=== PATIENT | female | born 1945 | race Caucasian/White ===

== ENCOUNTER 2023-11-01 12:42 | Emergency (ER) | payer MEDICARE, OTHER, SELFPAY ==
[2023-11-01 12:45] VITALS: BP 154/53; PULSE 66; RESP 13; TEMP 36.6; O2SAT 96; BMI 37.6
[2023-11-01 12:55] VITALS: BMI 37.8
--- NOTE | 2023-11-01 13:11 | CT_ITS ---
STUDY: CT BRAIN WITHOUT CONTRAST REASON FOR EXAM: Female, 78 years old. Dizziness RADIATION DOSAGE (If Supplied By Facility): CTDIvol = ( 44.99 ) mGy, DLP = ( 779.24 ) mGycm TECHNIQUE: Transaxial CT imaging of the brain was performed without administration of intravenous contrast material. Individualized dose optimization techniques were used for this CT. COMPARISON: No relevant priors. FINDINGS: Normal soft tissue structures. Normal calvarium. There is mild cerebral atrophy with widening of the extra-axial spaces and ventricular dilatation. There are areas of decreased attenuation within the white matter tracts of the supratentorial brain, consistent with microvascular disease changes. Normal basal ganglia and thalami. Normal brainstem. Normal cerebellum. There is no intracranial hemorrhage. There are no findings of an acute ischemic infarction. Normal visualized paranasal sinuses. CT/Brain/Head without Contrast IMPRESSION: Chronic involutional changes of the brain. Electronically Signed: Mark Caballero MD at 15:42 EDT ,
--- NOTE | 2023-11-01 13:13 | NURSING ---
NO OLD EKGS
--- NOTE | 2023-11-01 13:13 | EX.ED.DYSGE1 ---
HPI <HANH Paredes - Last Filed: 11/01/23 16:17> History of Present Illness Chief Complaint: Neuro S/Sx Narrative Narrative: Patient is a 78-year-old female history of TIA, hypertension, A-fib on Eliquis, CAD who presents to the emergency department for sudden onset of dizziness, unsteadiness. Patient was recently admitted to the hospital for 4 days, at [facility], she is from [place] which is 1 hour away. Patient was released 5 days ago. She had a full neurological workup including CTAs, MRI of the brain. Patient was diagnosed with TIA. Patient states she had a similar feeling of unsteadiness, however she had no unilateral weakness, difficulty speaking. Patient is here for evaluation. Brought by EMS <Dr. Bhargav Meraz DO - Last Filed: 11/01/23 21:33> Narrative Narrative: Patient is a 78-year-old female history of TIA, hypertension, A-fib on Eliquis, CAD who presents to the emergency department for sudden onset of dizziness, unsteadiness. Patient was recently admitted to the hospital for 4 days, at [facility], she is from [place] which is 1 hour away. Patient was released 5 days ago. She had a full neurological workup including CTAs, MRI of the brain. Patient was diagnosed with TIA. Patient states she had a similar feeling of unsteadiness, however she had no unilateral weakness, difficulty speaking. Patient is here for evaluation. Brought by EMS ON LICENSE OF [facility] <HANH Paredes - Last Filed: 11/01/23 16:17> ON LICENSE OF [facility] Medical History (Updated 11/01/23 @ 16:16 by HANH Paredes) Afib CAD (coronary artery disease) HTN (hypertension) Home Medications ?Medication ?Instructions ?Recorded ?Last Taken ?Type meclizine 25 mg tablet 25 mg PO 4X/DAY PRN PRN Dizziness 11/01/23 Unknown Rx #20 tabs Allergy/AdvReac Type Severity Reaction Status Date / Time trazodone AdvReac Intermediate Hypertensio Verified 11/01/23 12:53 n fentanyl AdvReac Unknown Quit Verified 11/01/23 12:53 breathing oxycodone AdvReac Unknown Quit Verified 11/01/23 12:53 breathing Social History Smoking Status: Former smoker ROS <UMER ParedesC - Last Filed: 11/01/23 16:17> ROS ED ROS Narrative Constitutional: Negative for fever, chills, weight loss. Positive for feeling of weakness Eyes: Negative for vision loss, vision change, double vision ENT: Negative for any sore throat, ear pain, congestion Cardiovascular: Negative for any chest pain, tightness, palpitations Respiratory: Negative for any cough, sputum production, hemoptysis, dyspnea, dyspnea on exertion, orthopnea Gastrointestinal: Negative for any abdominal pain, nausea, vomiting, diarrhea, constipation, blood in stool, blood in vomit : Negative for any urinary frequency, dysuria, retention, blood in urine Muscle skeletal: Negative for any neck pain, back pain Neurological: Negative for any syncope. Positive feeling of dizziness, headache, unsteadiness Skin: Negative for any rashes, itching, abrasions, lacerations Psychiatric: Negative for any depression, anxiety, stress, suicidal ideation, homicidal ideation Hematologic: Negative for any excessive bruising, easy bleeding EXAM <HANH Paredes - Last Filed: 11/01/23 16:17> Physical Exam Narrative Exam Narrative: Vital signs reviewed. Patient is alert and orient x 4. Patient's no obvious distress. Patient states she feels better when she is sitting still laying down. HEET: Head normocephalic atraumatic, TMs clear bilaterally. Posterior pharynx is clear, moist mucous membranes. Nares clear bilaterally. Neck: Supple with no lymphadenopathy or tenderness. No signs of meningismus. Cardiac: Regular rate and rhythm no murmurs gallops or rubs, equal peripheral pulses bilaterally. Pacemaker Respiratory: Lungs clear to auscultation bilaterally. No chest tenderness. Abdomen: Soft, nontender, nondistended. No abdominal bruit or pulsatile masses. No hepatosplenomegaly Extremities: No peripheral edema, no signs of gross trauma or deformity. Active full range of motion of all extremities. Neuro: Cranial nerves II through XII intact, no focal neurological deficits. NIH stroke scale 0. I was able to get the patient up, patient states immediately when she stood up, she felt unsteady, she had a difficult time differentiating between dizziness which is room spinning, 2 faint nests feeling like she might pass out. Patient states she could not stand anymore and had to sit down. Was unable to do Romberg test. Patient did have some horizontal nystagmus during Eagle-Hallpike. Skin: Clean dry and intact with no rash, purpura, petechiae, vesicles or pustules. Backs/flank: No CVA tenderness, no midline spinal tenderness, no deformity. Psych: Normal mood and affect. No SI, HI or acute psychosis. Const Vital Signs: 11/01/23 12:45 11/01/23 13:45 11/01/23 14:00 Temperature 97.9 F Temperature Source Oral Pulse Rate 66 64 60 Respiratory Rate 13 16 18 Blood Pressure 154/53 H 134/55 H 135/77 H Blood Pressure [Lying] Blood Pressure [Sitting (for 1 minute prior to obtaining)] Blood Pressure [Standing (for 1 minute prior to obtaining)] Blood Pressure Mean 86 81 96 Blood Pressure Mean [Lying] Blood Pressure Mean [Sitting (for 1 minute prior to obtaining)] Blood Pressure Mean [Standing (for 1 minute prior to obtaining)] Pulse Ox 96 98 95 Oxygen Delivery Method Room Air Room Air Room Air 11/01/23 15:23 Temperature Temperature Source Pulse Rate Respiratory Rate Blood Pressure Blood Pressure [Lying] 131/55 H Blood Pressure [Sitting (for 1 minute prior to obtaining)] 133/60 H Blood Pressure [Standing (for 1 minute prior to obtaining)] 126/54 H Blood Pressure Mean Blood Pressure Mean [Lying] 80 Blood Pressure Mean [Sitting (for 1 minute prior to obtaining)] 84 Blood Pressure Mean [Standing (for 1 minute prior to obtaining)] 78 Pulse Ox Oxygen Delivery Method Positive well nourished and well developed General Appearance ED: well developed <Dr. Bhargav Meraz, DO - Last Filed: 11/01/23 21:33> Physical Exam Const Vital Signs: 11/01/23 12:45 11/01/23 13:45 11/01/23 14:00 Temperature 97.9 F Temperature Source Oral Pulse Rate 66 64 60 Respiratory Rate 13 16 18 Blood Pressure 154/53 H 134/55 H 135/77 H Blood Pressure [Lying] Blood Pressure [Sitting (for 1 minute prior to obtaining)] Blood Pressure [Standing (for 1 minute prior to obtaining)] Blood Pressure Mean 86 81 96 Blood Pressure Mean [Lying] Blood Pressure Mean [Sitting (for 1 minute prior to obtaining)] Blood Pressure Mean [Standing (for 1 minute prior to obtaining)] Pulse Ox 96 98 95 Oxygen Delivery Method Room Air Room Air Room Air 11/01/23 15:23 Temperature Temperature Source Pulse Rate Respiratory Rate Blood Pressure Blood Pressure [Lying] 131/55 H Blood Pressure [Sitting (for 1 minute prior to obtaining)] 133/60 H Blood Pressure [Standing (for 1 minute prior to obtaining)] 126/54 H Blood Pressure Mean Blood Pressure Mean [Lying] 80 Blood Pressure Mean [Sitting (for 1 minute prior to obtaining)] 84 Blood Pressure Mean [Standing (for 1 minute prior to obtaining)] 78 Pulse Ox Oxygen Delivery Method ALEENA <HANH Paredes - Last Filed: 11/01/23 16:17> [facility] Lab Data Labs: Laboratory Results - last 24 hr 11/01/23 11/01/23 13:00 14:05 WBC 6.1 RBC 4.33 Hgb 12.9 Hct 40.5 MCV 93.5 MCH 29.8 MCHC 31.9 L RDW Std Deviation 48.8 H RDW Coeff of Luke 14.2 Plt Count 259 MPV 10.1 Immature Gran % (Auto) 0.200 Neut % (Auto) 61.1 Lymph % (Auto) 30.1 [place] % (Auto) 4.4 Eos % (Auto) 3.5 Baso % (Auto) 0.7 Absolute Neuts (auto) 3.7 Absolute Lymphs (auto) 1.83 Nucleated RBC % 0 Sodium 139 Potassium 4.4 Chloride 106 Carbon Dioxide 28.0 Anion Gap 5 BUN 24 H Creatinine 1.50 H Estim Creat Clear Calc 29.91 Est GFR (MDRD) Af Amer 43 L Est GFR (MDRD) Non-Af 36 L BUN/Creatinine Ratio 16.0 Glucose 176 H Calcium 9.4 Urine Color Yellow Urine Clarity Sl. Cloudy Urine pH 6.5 Ur Specific [place] 1.010 Urine Protein 15 H Urine Glucose (UA) Normal Urine Ketones Negative Urine Occult Blood Negative Urine Nitrite Negative Urine Bilirubin Negative Urine Urobilinogen Normal Ur Leukocyte Esterase 25 H Urine RBC 0-5 SEEN Urine WBC 0-5 SEEN Ur Squamous Epith Cells 0-5 SEEN Urine Bacteria RARE Urine Mucus 0 SEEN Radiography Diagnostic Testing: Clinical Impression(s) from Imaging Studies Brain CT 11/01/23 13:11 IMPRESSION: Chronic involutional changes of the brain. Electronically Signed: Mark Caballero MD at 15:42 EDT , EKG Normal sinus rhythm: Attestation: I personally reviewed and interpreted this EKG as follows: Comments: Normal sinus rhythm, right bundle branch block, rate of 64 bpm, MS interval 144 ms, QRS duration 174 ms, no acute ST elevation, no acute infarct noted. Treatment and Re-Evaluation :: Differential diagnosis includes however is not limited to: Intracranial bleeding, intracranial mass, CVA, TIA, benign positional peripheral vertigo, dehydration Patient appears to be in no obvious respiratory distress vital signs are stable, nontoxic. Patient presents to the emergency department for complaints of dizziness, unsteadiness, brought in by ambulance. Patient had a full stroke workup at [facility] less than 1 week ago. Patient is asymptomatic when she is sitting still. Patient will receive basic laboratory values, CT of the brain, I will interrogate her pacemaker. Patient will be given IV fluids, Zofran as well as some meclizine. Patient physical examination is concerning for vertiginous like episodes. EKG was unremarkable. Patient will need to be reevaluated. Patient is given IV fluids, oral meclizine. Laboratory values showed normal CBC, chemistry showed creatinine 1.5, she was given 1 L normal saline, unsure of her baseline. Glucose was 176. Patient's urinalysis was negative for any infection. CT scan of the brain was unremarkable. We did interrogate the patient's pacemaker that was negative. Patient was able to ambulate without any difficulty, patient was feeling much better. At this time, patient be diagnosed with benign positional peripheral vertigo. She will continue to follow-up as indicated. She is happy with this plan of care, given strict return precaution, stable for discharge. <Dr. Bhargav Meraz, DO - Last Filed: 11/01/23 21:33> [facility] Narrative Medical decision making narrative: I have personally performed a face to face assessment of the patient and have reviewed the LAVONNE Note. I performed a substantive portion of the visit including all aspects of the following. My alexandre findings include: History is [patient presents to the emergency department with complaint of dizziness that came on suddenly while she was eating a cookie at lunch. She was sitting down with her family member. Patient became concerned because she was admitted last week for a stroke workup where she was diagnosed with a TIA. Apparently had an MRI at another facility. Patient has a hard time describing exactly what she meant by dizziness but just felt like she was out of it. Denies necessarily vertiginous symptoms. She is on Eliquis for history of A-fib. She describe a mild headache in the base of her neck but she has had no falls or head injuries. Patient also has history of a pacemaker. She denies chest pain or shortness of breath. Denies recent illness.] Exam is [HEENT-PERRLA, EOMI. Cranial nerves II through XII grossly intact. TMs clear. Mucous membranes moist. No adenopathy. Cardiovascular-regular rate and rhythm without murmur or ectopy Lungs-clear to auscultation, chest wall stable without crepitus or subcu emphysema Abdomen-normoactive bowel sounds, soft, nontender, no rebound or rigidity, no peritoneal signs. Neuro [id number] and heel agosto testing within normal limits, negative Romberg, negative pronator drift. Hallpike maneuver performed and there was no nystagmus. Extremities-intact ?4, normal range of motion, normal pulses, atraumatic] Medical Decison Making [patient presents with vague complaint of dizziness that she describes as just feeling out of it. She had recent workup for stroke that was essentially unremarkable and diagnosed with TIA. EKG obtained here showed a sinus rhythm with no significant ST changes. She had her pacemaker interrogated and was told by the [employer] rep that there were no concerning abnormal runs of V. tach or V-fib or any significant abnormalities. Patient had a CT scan of the brain without contrast that was unremarkable. Basic labs CBC with differential showing a 6.1 with hemoglobin 12.9 and platelet count of 259. Chemistries unremarkable. BUN 24 creatinine 1.5. Urinalysis unremarkable. Patient did receive IV fluids and was given Antivert 25 mg IV. Orthostatic vital signs were negative. She ambulated without difficulty. Currently feeling markedly improved. At this point she will be discharged to home with a prescription for Antivert. Etiology of dizziness unclear as her Hallpike maneuver was negative. Etiology of dizziness unclear. In the differential would be BPPV versus vasovagal type spell.] Other additions or changes: [None] Lab Data Attestation: I reviewed the patient's lab results. Labs: Laboratory Results - last 24 hr 11/01/23 11/01/23 13:00 14:05 WBC 6.1 RBC 4.33 Hgb 12.9 Hct 40.5 MCV 93.5 MCH 29.8 MCHC 31.9 L RDW Std Deviation 48.8 H RDW Coeff of Luke 14.2 Plt Count 259 MPV 10.1 Immature Gran % (Auto) 0.200 Neut % (Auto) 61.1 Lymph % (Auto) 30.1 [place] % (Auto) 4.4 Eos % (Auto) 3.5 Baso % (Auto) 0.7 Absolute Neuts (auto) 3.7 Absolute Lymphs (auto) 1.83 Nucleated RBC % 0 Sodium 139 Potassium 4.4 Chloride 106 Carbon Dioxide 28.0 Anion Gap 5 BUN 24 H Creatinine 1.50 H Estim Creat Clear Calc 29.91 Est GFR (MDRD) Af Amer 43 L Est GFR (MDRD) Non-Af 36 L BUN/Creatinine Ratio 16.0 Glucose 176 H Calcium 9.4 Urine Color Yellow Urine Clarity Sl. Cloudy Urine pH 6.5 Ur Specific [place] 1.010 Urine Protein 15 H Urine Glucose (UA) Normal Urine Ketones Negative Urine Occult Blood Negative Urine Nitrite Negative Urine Bilirubin Negative Urine Urobilinogen Normal Ur Leukocyte Esterase 25 H Urine RBC 0-5 SEEN Urine WBC 0-5 SEEN Ur Squamous Epith Cells 0-5 SEEN Urine Bacteria RARE Urine Mucus 0 SEEN Radiography Diagnostic Testing: Clinical Impression(s) from Imaging Studies Brain CT 11/01/23 13:11 IMPRESSION: Chronic involutional changes of the brain. Electronically Signed: Mark Caballero MD at 15:42 EDT , Discharge Plan Triage Chief Complaint: Neuro S/Sx ED Midlevel Provider: Jorge Mccoy ED Provider: Bhargav Meraz Dx/Rx/DC Orders Clinical Impression: Vertigo Instructions: Inner Ear Balance, Vertigo Inner Ear Problems, Vertigo Medicine Tx, Vertigo Balance Problems Tests, ED Vertigo, Unspecified Prescriptions: New meclizine 25 mg tablet 25 mg PO 4X/DAY PRN PRN (Reason: Dizziness) Qty: 20 0RF Activity Restrictions/Additional Instructions: I believe that you had a vertigo like illness today. You got better with meclizine. Continue to follow-up with neurologist. Print Language: Cymro Disposition Disposition: Home, Self Care Discharge Date/Time: 11/01/23 16:29
[2023-11-01 13:23] LABS: Absolute Lymphocyte Count 1.83 X10^3/uL (0.83-4.51); Absolute Neutrophil Count 3.7 X10^3/uL (2.0-7.7); Basophil# 0.04 X10^3/uL; Basophil% 0.7 % (0-1); Eosinophil# 0.21 X10^3/uL; Eosinophils% 3.5 % (0-5); Hematocrit 40.5 % (37-47); Hemoglobin 12.9 g/dL (12.0-15.0); Lymphocyte # 1.83 X10^3/ul (0.83-4.51); Lymphocyte % 30.1 % (19-41); Mean Corp Hgb Conc 31.9 g/dL (32-36); Mean Corpuscular Hgb 29.8 pg (27.0-32.0); Mean Corpuscular Volume 93.5 fL (81-99); Mean Platelet Vol. 10.1 fl (6.2-12.0); Monocyte# 0.27 X10^3/uL; Monocyte% 4.4 % (0-10); NRBC Flagged by Analyzer 0 % (0-5); Neutrophil # 3.72 X10^3/uL (2.7-7.7); Neutrophil % 61.1 % (47-70); Platelet Count 259 K/mm3 (150-450); RBC Distribution Width CV 14.2 % (11.6-14.6); RBC Distribution Width SD 48.8 fl (35.1-43.9); Red Blood Count 4.33 M/mm3 (4.2-5.4); White Blood Count 6.1 K/mm3 (4.4-11.0)
[2023-11-01 13:39] LABS: Anion Gap 5 (5-15); BUN 24 mg/dL (7-18); Calcium,Total 9.4 mg/dL (8.5-10.1); Chloride 106 mmol/L (98-107); EST Glomerular Filtration Rate 36 mL/min (>60); Est Glom Filt Rate - Afr Amer 43 mL/min (>60); Estimated Creatinine Clearance 29.91 ml/min; Glucose 176 mg/dL (74-106); Potassium 4.4 mmol/L (3.5-5.1); Sodium Level 139 mmol/L (136-145)
[2023-11-01] MEDS: Meclizine HCl 25 MG Tablet PO (13:44)
[2023-11-01] MEDS: Ondansetron 4 MG/2 ML Vial IV (13:44)
[2023-11-01 13:45] VITALS: BP 134/55; PULSE 64; RESP 16; O2SAT 98
[2023-11-01] MEDS: 0.9% Normal Saline (1000mL) 1,000 ML 999 ML IV (13:45)
[2023-11-01 14:00] VITALS: BP 135/77; PULSE 60; RESP 18; O2SAT 95
[2023-11-01 14:12] LABS: Mucous, Urine 0 SEEN /hpf (<or=2+)
[2023-11-01 14:17] LABS: Color, Urine Yellow (Yellow); Glucose, Dipstick Normal (Normal); Ketone-Dipstick Negative (Negative); Leukocyte Esterase-Dipstick 25 /ul (Negative); Nitrite-Dipstick Negative (Negative); Occult Blood-Urine Negative /ul (Negative); Protein-Dipstick 15 mg/dl (Negative); Urine Bilirubin Dipstick Negative (Negative); Urine Clarity Sl. Cloudy (Clear); Urine Urobilinogen Normal (Normal); Urine pH 6.5 (5.0 - 8.0)
[2023-11-01 14:31] LABS: Red Blood Cells-Urine 0-5 SEEN /hpf (0-5); Squamous Epithelial Cells - UA 0-5 SEEN /hpf (5-10); White Blood Cells 0-5 SEEN /hpf (0-5)
[2023-11-01 14:32] LABS: Bacteria RARE /hpf (None Seen)
[2023-11-01 15:23] VITALS: BP 126/54; BP 131/55; BP 133/60
== END 2023-11-01 16:29 | disposition home or self-care (01) ==
PROVIDERS: Nurse Practitioner; Emergency Provider Emergency Medicine; Visit Provider Emergency Medicine
DX: R42 Dizziness and giddiness (principal); I48.91 Unspecified atrial fibrillation; I10 Essential (primary) hypertension; I25.10 Atherosclerotic heart disease of native coronary artery without angina pectoris; Z79.01 Long term (current) use of anticoagulants; Z86.73 Personal history of transient ischemic attack (TIA), and cerebral infarction without residual deficits; Z87.891 Personal history of nicotine dependence; Z95.0 Presence of cardiac pacemaker
CPT/HCPCS: 70450; 80048; 81001; 85025; 93005; 96361; 96374; 99284; J7030; A4216; J2405